=== PATIENT | female | born 1995 | race Caucasian/White ===

== ENCOUNTER 2017-02-13 00:12 | Emergency (ER) | payer OTHER ==
[~2017-02-13] VITALS: Ht 149.9 cm; Wt 84.5 kg
[~2017-02-13 00:12] MED LIST: BACTRIM,SEPT1 TABLET PO; CIPRO500 MG PO; ENDOCET 5-3251 EACH PO; FLINTSTONES COM18 MG PO; IBUPROFEN800 MG PO; KEFLEX500 MG PO; MIRALAX255 GM PO; MOTRIN800 MG PO; NO MEDICATIONS; PROCARDIA20 MG PO; ROBITUSSIN100 MG/5 M PO; ULTRAM50 MG PO; ZITHROMAX250 MG PO; ZOFRAN4 MG PO; birth control pill
[2017-02-13 00:50] LABS: ADD MIUA? YES; BILIRUBIN NEGATIVE; BLOOD NEGATIVE; COLOR YELLOW ((YELLOW)); GLUCOSE (STRIP) NEGATIVE; KETONES 20; LEUKOCYTES NEGATIVE; NITRITE NEGATIVE; PROTEIN (STRIP) 30; SPECIFIC GRAVITY 1.026 (1.000-1.030); UROBILINOGEN 0.2 MG/DL (0.2-1.0)
[2017-02-13 00:51] LABS: MCH 30.7 PG (29.0-34.0); MCHC 33.4 G/DL (30.0-36.0); MCV 91.9 FL (83-99); MEAN PLAT.VOLUME 13.1 uM^3 (9.5-12.4); PLATELET COUNT 219 K/uL (156-360); RBC DIS.WIDTH-CV 13.1 % (11.8-14.6); RBC DIS.WIDTH-SD 44.9 % (39-53); RED BLOOD COUNT 4.79 M/uL (3.80-5.20)
[2017-02-13 00:52] LABS: BACTERIA RARE /HPF; EPITHELIAL CELLS 2+ /HPF; MUCUS TRACE /LPF; RED BLOOD CELLS 0-5 /HPF (0-5); WHITE BLOOD CELLS 0-5 /HPF (0-5)
[2017-02-13 01:02] LABS: CHLORIDE 105 mEq/L (99-109); POTASSIUM 3.9 mEq/L (3.7-5.4); SODIUM 138 mEq/L (136-147)
[2017-02-13 01:04] LABS: GLUCOSE 83 mg/dL (70-99)
[2017-02-13 01:05] LABS: ANION GAP 13 MEQ/L (2-14)
[2017-02-13 01:06] LABS: TOTAL BILIRUBIN 0.3 mg/dL (0.0-1.0)
[2017-02-13 01:08] LABS: ALKALINE PHOSPHATASE 52 IU/L (3-129); GFR ESTIMATE (CALCULATED) > 59 mL/min/
[2017-02-13 01:09] LABS: UREA NITROGEN (BUN) 9 mg/dL (9-23)
[2017-02-13 01:11] LABS: LIPASE 19 U/L (1.0-51.0)
[2017-02-13 01:19] LABS: QUANTITATIVE HCG < 4.0 MIU/ML
[2017-02-13] MEDS ORDERED: KEFLEX500 MG PO (02:06)
[2017-02-13] MEDS ORDERED: BACTRIM,SEPT1 TABLET PO (02:06)
[2017-02-13] MEDS ORDERED: ZOFRAN ODT4 MG PO (02:06)
[2017-02-13] MEDS ORDERED: NAPROSYN500 MG PO (02:06)
[2017-02-13 02:33] VITALS: BP 137/67
== END 2017-02-13 02:36 | disposition home or self-care (01) ==
LOC: EME 00:12 → RME 00:12
PROVIDERS: Nurse Practitioner Family
PROC: 0H97XZZ Drainage of Abdomen Skin, External Approach (ICD-10-PCS; principal; 2017-02-13)
DX: L02.211 Cutaneous abscess of abdominal wall (principal); R50.9 Fever, unspecified; F17.200 Nicotine dependence, unspecified, uncomplicated
CPT/HCPCS: 74177; 80053; 81003; 83690; 84702; 85027; 87070; 87075; 87077; 87186; 87205; 99281; 99285; J1885; J7040